=== PATIENT | male | born 1955 | race Caucasian/White ===

== ENCOUNTER 2019-10-18 09:06 | Emergency (ER) | payer MEDICARE ==
[~2019-10-18] VITALS: Ht 177.8 cm; Wt 95.2 kg
[~2019-10-18 09:06] MED LIST: CENTRUM SILVER1 EAC3 PO; FLUTICASONE PRO16 GM NAS; GLYBURIDE5 MG PO; LANTUS SOL100 UNIT/1 SUB-Q; LISINOPRIL40 MG PO; MELOXICAM7.5 MG PO; METFORMIN HCL500 MG PO; METOPROLOL SUC200 MG PO; NIFEDIPINE ER60 MG PO; PRAVASTATIN SOD40 MG PO; RANITIDINE HCL300 M1 PO; TRAMADOL HCL50 MG PO; VITAMIN C1000 MG PO; VITAMIN D31000 UNIT PO; ZYRTEC10 M3 PO
--- OUTSIDE RECORDS SUMMARY | 2019-10-18 09:10 | XMS ---
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 Madan VISIT COUNT (12 MO.) 1 [place]IA [place] TOTAL 1 NOTE: Visits indicate total known visits. ED/UCC VISIT TRACKING (12 MO.) 10/18/2019 09:07 [place] TYPE: Emergency COMPLAINT: - CHEST PAIN, TINGLING IN ARMS INPATIENT VISIT TRACKING (12 MO.) No inpatient visits to display in this time frame [email or web address]
--- NOTE | 2019-10-18 13:22 | EKG ---
[facility] [address] [facility] [place] [address] elevation, consider inferior injury or acute infarct ACUTE [place] / STEMI Consider right ventricular involvement in acute inferior infarct Abnormal ECG No previous ECGs available Confirmed by MIKEY ESTRELLA MD ([id number]) on 10/18/2019 1:22:35 PM Electronically Signed By: MIKEY ESTRELLA MD 10/18/19 1322 PATIENT NAME: MOHAN LOVE Electrocardiogram DATE OF : 51 PHYSICIAN: MIKEY ESTRELLA MD REPORT #: [id number] REPORT IS CONFIDENTIAL AND NOT TO BE RELEASED WITHOUT AUTHORIZATION
== END 2019-10-18 09:40 | disposition short-term general hospital (02) ==
LOC: ED 09:06
DX: I21.3 ST elevation (STEMI) myocardial infarction of unspecified site (principal); I10 Essential (primary) hypertension; E11.9 Type 2 diabetes mellitus without complications; G47.30 Sleep apnea, unspecified; Z88.8 Allergy status to other drugs, medicaments and biological substances; Z79.899 Other long term (current) drug therapy; Z79.84 Long term (current) use of oral hypoglycemic drugs
CPT/HCPCS: 71045; 80053; 83735; 84484; 85025; 93005; 93010; 96374; 99285-25; J1644

== ENCOUNTER 2019-10-27 04:43 | Emergency (ER) | payer MEDICARE ==
[~2019-10-27] VITALS: Ht 177.8 cm; Wt 95.2 kg
--- OUTSIDE RECORDS SUMMARY | 2019-10-27 04:46 | XMS ---
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 ELinda VISIT COUNT (12 MO.) 2 CECELIA [place] TOTAL 2 NOTE: Visits indicate total known visits. 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 TYPE: Transplant DIAGNOSES: - Metabolic syndrome - Hyperglycemia, unspecified - Presence of aortocoronary bypass graft - Paroxysmal atrial fibrillation - multiple vessle coronary artery disease - 1 Type 2 diabetes mellitus with other specified complication - terminal supervisor (current) use of insulin [facility] DIAGNOSES: - STEMI - Athscl heart disease of [place] cor art w unstable ang pctrs - chest pain - STEMI involving right coronary artery [email or web address]
[2019-10-27] MEDS ORDERED: PACERONE200 MG PO (07:31)
[2019-10-27] MEDS ORDERED: TOPROL XL25 MG PO (07:31)
--- NOTE | 2019-10-28 11:05 | EKG ---
[facility] [address] [facility] [place] [address] Signed Atrial fibrillation with rapid ventricular response Nonspecific T wave abnormality Abnormal ECG When compared with ECG of 18-OCT-2019 09:09, Atrial fibrillation has replaced Sinus rhythm ST no longer depressed in Lateral leads Nonspecific T wave abnormality has replaced inverted T waves in Lateral leads Confirmed by MANOJ MCKNIGHT DO ([id number]) on 10/28/2019 11:05:14 AM Electronically Signed By: MANOJ MCKNIGHT DO 10/28/19 1105 PATIENT NAME: MOHAN LOVE Electrocardiogram DATE OF : 51 PHYSICIAN: MANOJ MCKNIGHT DO REPORT #: [id number] REPORT IS CONFIDENTIAL AND NOT TO BE RELEASED WITHOUT AUTHORIZATION
== END 2019-10-27 07:59 | disposition home or self-care (01) ==
LOC: ED 04:43
DX: I48.91 Unspecified atrial fibrillation (principal); I10 Essential (primary) hypertension; E11.9 Type 2 diabetes mellitus without complications; G47.30 Sleep apnea, unspecified; Z87.891 Personal history of nicotine dependence; Z88.8 Allergy status to other drugs, medicaments and biological substances; Z79.899 Other long term (current) drug therapy; Z79.4 Long term (current) use of insulin
CPT/HCPCS: 80053; 84484; 85025; 85610; 99285-25

== ENCOUNTER 2019-10-30 23:31 | Emergency (ER) | payer MEDICARE ==
[~2019-10-30] VITALS: Ht 177.8 cm; Wt 95.2 kg
[~2019-10-30 23:31] MED LIST changes: +PACERONE200 MG PO; +TOPROL XL25 MG PO
--- OUTSIDE RECORDS SUMMARY | 2019-10-30 23:34 | XMS ---
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 ELinda VISIT COUNT (12 MO.) 3 CECELIA [place] TOTAL 3 NOTE: Visits indicate total known visits. 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
== END 2019-10-31 01:07 | disposition home or self-care (01) ==
LOC: ED 23:31
DX: M70.72 Other bursitis of hip, left hip (principal); I10 Essential (primary) hypertension; E11.9 Type 2 diabetes mellitus without complications; G47.30 Sleep apnea, unspecified; Z87.891 Personal history of nicotine dependence; Z88.8 Allergy status to other drugs, medicaments and biological substances; Z79.899 Other long term (current) drug therapy; Z79.84 Long term (current) use of oral hypoglycemic drugs
CPT/HCPCS: 80053; 85025; 85610; 85730; 93971; 99284-25

== ENCOUNTER 2019-12-24 09:04 | Inpatient (IN) | payer MEDICARE ==
[~2019-12-24] VITALS: Ht 177.8 cm; Wt 95.2 kg
[~2019-12-24 09:04] MED LIST changes: -GLYBURIDE5 MG PO; -LISINOPRIL40 MG PO; -METFORMIN HCL500 MG PO; -METOPROLOL SUC200 MG PO; -PRAVASTATIN SOD40 MG PO
--- OUTSIDE RECORDS SUMMARY | 2019-12-24 09:06 | XMS ---
PreManage Notification: MOHAN LOVE Security Manager Generation Events No recent Security Events currently on file CRITERIA MET - [facility] CARE PROVIDERS ROBERT STUBBS Family [facility] Current PHONE: [phone] Robert Stubbs Treatment Current [place] PHONE: Unknown ROBERT STUBBS Primary Care Current PHONE: [phone] Masoud has no Care Guidelines for this patient. Care History Medical/Surgical 10/31/2019 [facility] - [facility] CALLED AND LEFT PATIENT A VOICEMAIL. - [facility] CONTACTED PCP OFFICE-DR STUBBS-PATIENT HAS NOT BEEN SEEN BY PCP SINCE JULY 2019. NO FOLLOW UP APTS HAVE BEEN MADE. - HIGH RISK CONCERNS FOR FOLLOW UP. Madan VISIT COUNT (12 MO.) 4 CECELIA [place] TOTAL 4 NOTE: Visits indicate total known visits. 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 drugs - Allergy status to other drugs, medicaments and biological sub 10/27/2019 04:44 [facility] [place] TYPE: Emergency COMPLAINT: - RAPID HEARTBEAT DIAGNOSES: - Sleep apnea, unspecified - [facility] (current) use of insulin - Type 2 diabetes mellitus without complications - Unspecified atrial fibrillation - Shortness of breath - Other retirement (current) drug therapy - Personal history of nicotine dependence - Essential (primary) hypertension - Allergy status to other drugs, medicaments and biological sub 10/18/2019 09:07 [facility] [place] TYPE: Emergency COMPLAINT: - CHEST PAIN, TINGLING IN ARMS DIAGNOSES: - Other chest pain - Essential (primary) hypertension - Sleep apnea, unspecified - Type 2 diabetes mellitus without complications - Allergy status to other drugs, medicaments and biological sub - Other retirement (current) drug therapy - ocean transportation 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
[2019-12-24] MEDS ORDERED: MELOXICAM15 MG PO (12:19)
[2019-12-24] MEDS ORDERED: ULTRAM50 MG PO (12:20)
[2019-12-24] MEDS ORDERED: ARNUITY ELLIPT50 MCG NAS (12:22)
[2019-12-24] MEDS ORDERED: WARFARIN SODIUM1 MG PO (12:24)
[2019-12-24] MEDS ORDERED: METFORMIN HCL500 MG PO ×2 (12:24→15:53)
[2019-12-24] MEDS ORDERED: ZYRTEC10 MG PO (12:25)
[2019-12-24] MEDS ORDERED: PRAVASTATIN SOD40 MG PO (12:26)
[2019-12-24] MEDS ORDERED: ACETAMINOPHEN500 MG PO (12:27)
[2019-12-24] MEDS ORDERED: ATORVASTATIN CA80 MG PO (12:28)
[2019-12-24] MEDS ORDERED: ASPIR 8181 MG PO (12:28)
[2019-12-24] MEDS ORDERED: CENTRUM SILVER1 EAC3 PO (12:29)
[2019-12-24] MEDS ORDERED: CYCLOBENZAPRINE10 MG PO (12:30)
[2019-12-24] MEDS ORDERED: DILTIAZEM 24HR180 M1 PO (12:30)
[2019-12-24] MEDS ORDERED: METOPROLOL SUC200 MG PO (12:31)
[2019-12-24] MEDS ORDERED: LEVEMIR FL100 UNIT/2 SUB-Q (12:33)
[2019-12-24] MEDS ORDERED: LISINOPRIL40 MG PO (12:33)
[2019-12-24] MEDS ORDERED: VITAMIN C1000 MG PO (12:34)
[2019-12-24] MEDS ORDERED: POTASSIUM CHLO10 ME2 PO (12:34)
[2019-12-24] MEDS ORDERED: VITAMIN D325 MC1 PO (12:35)
[2019-12-24] MEDS ORDERED: CHLORTHALIDONE50 MG PO (12:36)
[2019-12-24] MEDS ORDERED: NIFEDIPINE ER30 MG PO (15:59)
[2019-12-24] MEDS ORDERED: GLYBURIDE5 MG PO (16:00)
[2019-12-24] MEDS ORDERED: METOPROLOL SUC100 MG PO (16:03)
--- NOTE | 2019-12-24 17:09 | EKG ---
[facility] [address] [facility] [place], [place] [address] Signed Sinus tachycardia Possible Left atrial enlargement Inferior infarct , age undetermined T wave abnormality, consider lateral ischemia Abnormal ECG When compared with ECG of 27-OCT-2019 04:49, Significant changes have occurred Confirmed by WILLIAM YBARRA MD ([id number]) on 12/24/2019 5:09:49 PM Electronically Signed By: WILLIAM YBARRA MD 12/24/19 1709 PATIENT NAME: MOHAN LOVE Electrocardiogram DATE OF : 51 PHYSICIAN: WILLIAM YBARRA MD REPORT #: [id number] REPORT IS CONFIDENTIAL AND NOT TO BE RELEASED WITHOUT AUTHORIZATION
[2019-12-24] MEDS ORDERED: FLONASE ALLERG9.9 ML NAS (18:53)
--- NOTE | 2019-12-25 06:23 | CONS ---
[facility] [address] [place], [place] [address] Signed DATE OF CONSULTATION: 12/24/2019 CHIEF COMPLAINT: Melena. HISTORY OF PRESENT ILLNESS: Jcarlos is a 64-year-old gentleman, I have known for quite a few years. Over last couple of days he has had melena, weakness and dyspnea on exertion. He just went up to [facility] in [place] on October 18, 2019 for a CABG x4. He said there are no stents in his heart to his knowledge, apparently he had a STEMI. He has come to the emergency room with the above. He has been on aspirin, meloxicam, and Coumadin. He has been admitted to the Internal Medicine Service. He received 2 units of packed red blood cells. He said he is already feeling better. He has been started on his bowel prep. I have been asked to see him as a general surgeon on-call for consideration of upper and lower endoscopy. He told me he has never had a previous colonoscopy. No family history of colon cancer or polyps to his knowledge. PAST MEDICAL HISTORY: Hypertension, STEMI in September 2019, coronary artery disease, type 2 diabetes, obstructive sleep apnea requiring CPAP, and hypercholesterolemia. PAST SURGICAL HISTORY: Includes a right rotator cuff repair, CABG x4, October 18, 2019 at [facility] in [place], also back surgery without any metal. SOCIAL HISTORY: He quit smoking. He does drink. His brother is Jamie at [phone]. Dr. Robert Stubbs is primary care provider, Dr. Dee is his construction operations manager and he prefers the [facility] here in [place]. He does drive. FAMILY HISTORY: He said his brother has lots of medical problems. His mom had a pacemaker in her 90s. REVIEW OF SYSTEMS: He had 10 systems reviewed. There is nothing new to add. ALLERGIES: Dogs, molds and seasonal allergies. MEDICATIONS: Insulin, lisinopril, potassium, vitamin C, vitamin D, THC, chlorthalidone, meloxicam, aspirin, tramadol, fluconazole, metformin, Coumadin, Zyrtec, pravastatin, Tylenol, multivitamin, Flexeril, metoprolol, glyburide. Electronically Signed By: FRANK GARIBAY MD 12/25/19 0623 PATIENT NAME: JCARLOS LOVE CONSULTATION DATE OF : 51 REPORT #: [id number] PHYSICIAN: FRANK GARIBAY MD PCP: ROBERT STUBBS MD REPORT IS CONFIDENTIAL AND NOT TO BE RELEASED WITHOUT AUTHORIZATION [facility] [address] [place], [place] [address] Signed PHYSICAL EXAMINATION: VITAL SIGNS: Blood pressure is 150/85, heart rate 105, respiratory rate 18, temperature is 98.3, he is 97%. He is 5 feet 10 inches at 95 kg. GENERAL: Jcarlos is a 64-year-old gentleman, appears healthy and at his stated age. He is watching TV. He has good color. He is not in any acute distress. LUNGS: Generally clear to auscultation bilaterally. HEART: Tachycardic. ABDOMEN: Soft, flat, and nontender. LABORATORY DATA: His white blood cell count 18.6, hemoglobin 7.4, neutrophils 92, platelets 270. BUN 91, creatinine 1.72, glucose 225, his troponin was 0.033. INR 1.8. Liver function tests are negative. Albumin is 3.6. ASSESSMENT AND PLAN: Jcarlos is a 64-year-old gentleman who presents with a GI bleed involving melena and anemia. I explained to Jcarlos the above findings. He is currently undergoing his bowel prep. We are going to plan on doing his endoscopy around 9 o'clock tomorrow morning with an anesthesia provider to help. I have reviewed with him upper and lower endoscopy. He understands the nature of the two tests along with the risks including, but not limited to gas bloating, crampy abdominal pain, bleeding, perforation requiring surgery, and missed diagnosis. He has expressed understanding and would like to proceed. Frank Garibay MD ALB/MODL /[id number] cc: MD Robert Patten MD Lohith Veerappa Reddy, MD Copies: CARI DEE MD Electronically Signed By: FRANK GARIBAY MD 12/25/19 0623 PATIENT NAME: JCARLOS LOVE CONSULTATION DATE OF : 51 REPORT #: [id number] PHYSICIAN: FRANK GARIBAY MD PCP: ROBERT STUBBS MD REPORT IS CONFIDENTIAL AND NOT TO BE RELEASED WITHOUT AUTHORIZATION [address] [address] Signed ROBERT STUBBS MD, LOHITH VEERAPPA MD ~ Electronically Signed By: FRANK GARIBAY MD 12/25/19 0623 PATIENT NAME: CÉSARTEREJCARLOS GERARDO CONSULTATION DATE OF : 51 REPORT #: [id number] PHYSICIAN: FRANK GARIBAY MD PCP: ROBERT STUBBS MD REPORT IS CONFIDENTIAL AND NOT TO BE RELEASED WITHOUT AUTHORIZATION
--- NOTE | 2019-12-26 05:58 | OR ---
[facility] [address] [place], [place] [address] Signed DATE OF OPERATION: 12/25/2019 SURGEON: Frank Garibay MD PREOPERATIVE DIAGNOSES: 1. Gastrointestinal bleeding (melena). 2. Anemia. 3. Daily aspirin, meloxicam, and Coumadin. POSTOPERATIVE DIAGNOSES: 1. Clxpkpkb-my-ermau pyloric bulb duodenal ulcer. 2. Small hiatal hernia. 3. A 5 mm polyp in the distal hepatic flexure. 4. Minimal to moderate internal hemorrhoids. PROCEDURES: 1. EGD with CLOtest and biopsies of the pyloric bulb. 2. Colonoscopy with hot biopsy. ESTIMATED BLOOD LOSS: None. INDICATIONS: Jcarlos is a 64-year-old gentleman who was having some chest pain and numbness in his fingers in September of this year. He had his cardiac cath in [place], [place] and was flown up to [place], [place] and underwent his CABG x4 on October 18, 2019. He is now back home in [place], [place]. He is on daily aspirin and Coumadin along with meloxicam for his back. He was having at least 2 days of melena and dyspnea on exertion and feeling weak. He finally came to the emergency room for evaluation. He was found to be anemic with a hemoglobin of 7.4 and his BUN was up at 91 with a creatinine of 1.72. Troponin was a little up at 0.033. INR was therapeutic at 1.8. He was admitted to the Internal Medicine Service and given vitamin K in the emergency room. I have been asked to see him as a general surgeon on-call. In the meantime, he received 2 units of packed red blood cells. His hemoglobin went up to 8.6 and is now 8.0. His platelet count has dropped from 270 down to 188. His BUN and creatinine have improved from down to 64 and 1.38. INR also improved to 1.1. He went through his bowel prep yesterday and seemed to do fine. He said just a little bit of brown stool was the last thing he saw around 11:00 p.m. last night. I met with Jcarlos here in the hospital. We had a long discussion regarding the above findings. We reviewed upper and lower endoscopy. Unfortunately, he has never had an endoscopy. He said for other various medical Electronically Signed By: FRANK GARIBAY MD 12/26/19 0558 PATIENT NAME: JCARLOS LOVE OPERATIVE REPORT DATE OF : 51 REPORT #: [id number] PHYSICIAN: FRANK GARIBAY MD PCP: ROBERT KRAUS MD REPORT IS CONFIDENTIAL AND NOT TO BE RELEASED WITHOUT AUTHORIZATION [facility] [address] [place] [address] Signed reasons, he has had to put it off. I explained to him there is risk to the procedure including, but not limited to gas bloating, crampy abdominal pain, bleeding, perforation requiring surgery, and missed diagnosis. Also because of his significant medical comorbidities including his rather significant obstructive sleep apnea requiring CPAP mask, we did ask an anesthesia provider to help us with increased monitoring and sedation with propofol. That proved to be a mccann decision particularly with respect to his sleep apnea. He had expressed understanding and wished to proceed. PROCEDURE NOTE: Jcarlos was taken into our endoscopy suite and placed in the supine semi-recumbent position. He was given IV sedation per our nurse cotton machine operator. He required frequent airway control because of the sleep apnea. The adult gastroscope was introduced and advanced out into the third portion of the duodenum under direct visualization of the camera without difficulty. The 2nd and 3rd portion of the duodenum were unremarkable. The pyloric bulb was edematous and had sbcdtetv-rc-lkqih broad-based nonbleeding ulcer. We took a biopsy next to it for pathologic review on the distal side. The antrum, incisura, body and fundus of the stomach were unremarkable. We took one additional biopsy of the antrum for CLOtest. Upon retroflexion of the scope, he does have a small hiatal hernia. There was no gastric or esophageal varices. The scope was withdrawn up to the GE junction, which was compliant without stricture. The Z-line is generally intact. No Cerrato's mucosa, no distal esophagitis. The middle and upper esophagus were unremarkable. After this, the gas was suctioned out and the gastroscope removed. Jcarlos tolerated upper endoscopy quite well. Jcarlos was then rotated into the left lateral decubitus position. He was maintained on IV sedation per our nurse cotton machine operator. A digital rectal exam was performed. He has a somewhat broad enlarged indurated prostate gland. The adult colonoscope was then introduced and advanced under direct visualization of the camera. We did use some abdominal compression in order to get the scope around the hepatic flexure and down into the cecum itself. His prep was average. He had a few areas of liquid particulate stool matter. Most of that was irrigated and suctioned out. We could easily see the appendiceal orifice and the ileocecal valve. The scope was slowly withdrawn. He had a small 5 mm polyp in the distal hepatic flexure. It was easily removed with hot biopsy forceps. The rest of the colon was unremarkable. However, he has a somewhat long redundant colon. No diverticulosis. The rectum was unremarkable. Upon retroflexion of the scope, he has minimal-to- moderate internal hemorrhoid columns. After this, the gas was suctioned out and colonoscope removed. Jcarlos tolerated the procedure quite well. RECOMMENDATIONS: Jcarlos will be returned to his ICU room and started on his clear liquid diet. He will be maintained on his Protonix b.i.d. Electronically Signed By: FRANK GARIBAY MD 12/26/19 0558 PATIENT NAME: JCARLOS LOVE OPERATIVE REPORT DATE OF : 51 REPORT #: [id number] PHYSICIAN: FRANK GARIBAY MD PCP: ROBERT KRAUS MD REPORT IS CONFIDENTIAL AND NOT TO BE RELEASED WITHOUT AUTHORIZATION [address] [address] Signed Frank Garibay MD ALB/MODL /[id number] cc: MD Robert Sigala MD Suwong Wongsuwan, MD Copies: FRANK GARIBAY MD, JONATHAN MD WONGSUWAN, SUWONG MD ~ Electronically Signed By: FRANK GARIBAY MD 12/26/19 0558 PATIENT NAME: JCARLOS LOVE OPERATIVE REPORT DATE OF : 51 REPORT #: [id number] PHYSICIAN: FRANK GARIBAY MD PCP: ROBERT KRAUS MD REPORT IS CONFIDENTIAL AND NOT TO BE RELEASED WITHOUT AUTHORIZATION
[2019-12-26] MEDS ORDERED: METOPROLOL TAR100 MG PO (10:17)
[2019-12-26] MEDS ORDERED: DILTIAZEM 24HR240 M1 PO (10:17)
[2019-12-26] MEDS ORDERED: PANTOPRAZOLE SO40 MG PO (10:18)
[2019-12-26] MEDS ORDERED: ELIQUIS5 MG PO (10:20)
--- NOTE | 2019-12-26 14:32 | PATH ---
[facility] [address] [place], [place] [address] Signed SPECIMEN(S): A DUODENUM BULB SPECIMEN(S): B DISTAL HEPATIC FLEXURE POLYP SPECIMEN SOURCE: A. DUODENUM BULB B. DISTAL HEPATIC FLEXURE POLYP CLINICAL HISTORY: GI bleed. MICROSCOPIC DESCRIPTION: Histologic sections of all submitted blocks are examined by light microscopy. These findings, together with the gross examination, support the pathologic diagnosis. FINAL PATHOLOGIC DIAGNOSIS: A. Duodenal bulb, biopsy: - Duodenal mucosa with mild increased lamina propria chronic inflammation. - Negative for dysplasia or malignancy. B. Colon, distal hepatic flexure, polyp, polypectomy: - Fragments of tubular adenoma. - Negative for high-grade dysplasia or malignancy. NAL:cml:C2NR GROSS DESCRIPTION: Two specimens are received in two containers, labeled "DM." A. The specimen, labeled "DM, 1," and designated on the requisition "duodenal bulb," is received in formalin and consists of a single rocha soft tissue fragment that measures 0.4 cm in greatest dimension. The specimen is entirely submitted in cassette (A1). B. The specimen, labeled "DM, 2," and designated on the requisition "distal hepatic flexure," is received in formalin and consists of three rocha soft tissue fragments that measure 0.3 cm in greatest dimension. The specimen is entirely submitted in cassette (B1). AT (under the direct supervision of a pathologist) The Gross Description was prepared using a voice recognition system. The report was reviewed for accuracy; however, sound-alike word errors, addition and/or deletions may occur. If there is any question about this report, please contact Client Services. PERFORMING LABORATORY: The technical component was performed by Beneq, Myriam Rodriguezfred Viraj, PATIENT NAME: MOHAN LOVE PATHOLOGY DATE OF : 51 REPORT #: [id number] PHYSICIAN: [facility] PATHOLOGY PCP: ROBERT KRAUS MD REPORT IS CONFIDENTIAL AND NOT TO BE RELEASED WITHOUT AUTHORIZATION [facility] [address] [place], [place] [address] [place] [address] (Director Labor Standards: Radha Mercado MD; CLIA# [id number]). Professional interpretation was performed by [facility], [address] [address] (CLIA# [id number]). Diagnostician: Rachel Zavaleta MD Pathologist Electronically Signed 12/26/2019 Copies: ~ PATIENT NAME: MOHAN LOVE PATHOLOGY DATE OF : 51 REPORT #: [id number] PHYSICIAN: MAR[facility] PATHOLOGY PCP: ROBERT KRAUS MD REPORT IS CONFIDENTIAL AND NOT TO BE RELEASED WITHOUT AUTHORIZATION
== END 2019-12-26 11:20 | disposition home or self-care (01) | DRG 378 ==
LOC: ED 09:04 → CCU 12:18
PROVIDERS: Colon & Rectal Surgery; ADMIT Internal Medicine
PROC: 0DBL8ZX Excision of Transverse Colon, Via Natural or Artificial Opening Endoscopic, Diagnostic (ICD-10-PCS; 2019-12-25)
PROC: 0DB98ZX Excision of Duodenum, Via Natural or Artificial Opening Endoscopic, Diagnostic (ICD-10-PCS; principal; 2019-12-25 08:00)
PROC: 0DB78ZX Excision of Stomach, Pylorus, Via Natural or Artificial Opening Endoscopic, Diagnostic (ICD-10-PCS; 2019-12-25 08:00)
DX: K26.4 Chronic or unspecified duodenal ulcer with hemorrhage (principal); D62 Acute posthemorrhagic anemia; N17.9 Acute kidney failure, unspecified; I48.92 Unspecified atrial flutter; K44.9 Diaphragmatic hernia without obstruction or gangrene; I10 Essential (primary) hypertension; E11.22 Type 2 diabetes mellitus with diabetic chronic kidney disease; N18.9 Chronic kidney disease, unspecified; I25.10 Atherosclerotic heart disease of native coronary artery without angina pectoris; I48.0 Paroxysmal atrial fibrillation; G47.33 Obstructive sleep apnea (adult) (pediatric); T39.395A Adverse effect of other nonsteroidal anti-inflammatory drugs [NSAID], initial encounter; E78.5 Hyperlipidemia, unspecified; M54.9 Dorsalgia, unspecified; G89.29 Other chronic pain; K64.8 Other hemorrhoids; J30.2 Other seasonal allergic rhinitis; K63.5 Polyp of colon; Z87.891 Personal history of nicotine dependence; Z95.1 Presence of aortocoronary bypass graft; Z79.899 Other long term (current) drug therapy; Z79.01 Long term (current) use of anticoagulants; Z79.1 Long term (current) use of non-steroidal anti-inflammatories (NSAID); Z79.4 Long term (current) use of insulin
CPT/HCPCS: 36415; 36430; 80048; 80053; 83735; 84484; 85018; 85025; 85610; 86677; 86850; 86900; 86901; 86920; 93005; 93010; 99285-25; C9113; J1815; J2704; J3430; J7121; P9016

== ENCOUNTER 2020-01-29 18:55 | Emergency (ER) | payer MEDICARE ==
[~2020-01-29] VITALS: Ht 177.8 cm; Wt 93.0 kg
[~2020-01-29 18:55] MED LIST changes: +ACETAMINOPHEN500 MG PO; +ARNUITY ELLIPT50 MCG NAS; +ASPIR 8181 MG PO; +ATORVASTATIN CA80 MG PO; +CHLORTHALIDONE25 MG PO; +CHLORTHALIDONE50 MG PO; +CYCLOBENZAPRINE10 MG PO; +DILTIAZEM 24HR180 M1 PO; +DILTIAZEM 24HR240 M1 PO; +ELIQUIS5 MG PO; +FLONASE ALLERG9.9 ML NAS; +GLYBURIDE5 MG PO; +LEVEMIR FL100 UNIT/2 SUB-Q; +LISINOPRIL40 MG PO; +MELOXICAM15 MG PO; +METFORMIN HCL500 MG PO; +METOPROLOL SUC100 MG PO; +METOPROLOL SUC200 MG PO; +METOPROLOL TAR100 MG PO; +NIFEDIPINE ER30 MG PO; +PANTOPRAZOLE SO40 MG PO; +POTASSIUM CHLO10 ME2 PO; +PRAVASTATIN SOD40 MG PO; +ULTRAM50 MG PO; +VITAMIN D325 MC1 PO; +WARFARIN SODIUM1 MG PO; +ZYRTEC10 MG PO
--- OUTSIDE RECORDS SUMMARY | 2020-01-29 18:58 | XMS ---
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 - 2 Visits in 30 Days CARE PROVIDERS ROBERT KRAUS Family Medicine 12/24/2019-Current PHONE: [phone] Masoud has no Care Guidelines for this patient. Care History Medical/Surgical 10/31/2019 [facility] - [facility] CALLED AND LEFT PATIENT A VOICEMAIL. - [facility] CONTACTED PCP OFFICE-DR KRAUS-PATIENT HAS NOT BEEN SEEN BY PCP SINCE JULY 2019. NO FOLLOW UP APTS HAVE BEEN MADE. - HIGH RISK CONCERNS FOR FOLLOW UP. [place] VISIT COUNT (12 MO.) 6 [facility] TOTAL 6 NOTE: Visits indicate total known visits. ED/UCC VISIT TRACKING (12 MO.) 01/29/2020 18:56 [facility] [place] TYPE: Emergency COMPLAINT: - HEART PROBLEMS 12/30/2019 21:01 [facility] TYPE: Emergency COMPLAINT: - LOW BLOOD PRESSURE 12/24/2019 09:04 [facility] [place] TYPE: Emergency COMPLAINT: - WEAKNESS 10/30/2019 23:31 [facility] [place] [facility] [place] TYPE: Emergency COMPLAINT: - HIP PAIN DIAGNOSES: - Old myocardial infarction - Other bursitis of hip, left hip - Presence of aortocoronary bypass graft - Acute embolism and thrombosis of left peroneal vein - Personal history of nicotine dependence - Type 2 diabetes mellitus without complications - Sleep apnea, unspecified - Essential (primary) hypertension - Other rn long term care (current) drug therapy - skilled nursing (current) use of oral hypoglycemic drugs - Allergy status to other drugs, medicaments and biological sub 10/27/2019 04:44 [facility] [place] TYPE: Emergency COMPLAINT: - RAPID HEARTBEAT DIAGNOSES: - Sleep apnea, unspecified - intermediate project manager (current) use of insulin - Type 2 diabetes mellitus without complications - Unspecified atrial fibrillation - Shortness of breath - Other rn long term care (current) drug therapy - Personal history of [...] drugs, medicaments and biological sub - Other detention (current) drug therapy - skilled nursing (current) use of oral hypoglycemic drugs - ST elevation (STEMI) myocardial infarction of unspecified sit INPATIENT VISIT TRACKING (12 MO.) 12/30/2019 21:02 [facility] TYPE: Observation COMPLAINT: - ACUTE BLOOD LOSS/ANEMIA DIAGNOSES: - intermediate project manager (current) use of anticoagulants - Chronic atrial fibrillation, unspecified - Personal history of nicotine dependence - Other rn long term care (current) drug therapy - Sleep apnea, unspecified - Pure hypercholesterolemia, unspecified - Essential (primary) hypertension - skilled nursing (current) use of inhaled steroids - Type 2 diabetes mellitus without complications - Old myocardial infarction - skilled nursing (current) use of insulin - Chronic or unspecified duodenal ulcer with hemorrhage - Dependence on other enabling machines and devices - Presence of aortocoronary bypass graft - Acute kidney failure, unspecified - Acute posthemorrhagic anemia 12/24/2019 12:18 [facility] TYPE: Critical Care COMPLAINT: - GI BLEED DIAGNOSES: - Polyp of colon - Other chronic pain - Other seasonal allergic rhinitis - skilled nursing (current) use of anticoagulants - Personal history of nicotine dependence - Other hemorrhoids - Dorsalgia, unspecified - Acute posthemorrhagic anemia - Chronic kidney disease, unspecified - Diaphragmatic hernia without obstruction or gangrene - Essential (primary) hypertension - Other rn long term care (current) drug therapy - Acute posthemorrhagic anemia - Adverse effect of other nonsteroidal anti-inflammatory drugs - Other seasonal allergic rhinitis - Other rn long term care (current) drug therapy - Unspecified atrial flutter - intermediate project manager (current) use of insulin - skilled nursing (current) use of anticoagulants - Atherosclerotic heart disease of [place] coronary artery witho - Hyperlipidemia, unspecified - Presence of aortocoronary bypass graft - Dorsalgia, unspecified - Melena - Paroxysmal atrial fibrillation - Type 2 diabetes mellitus with diabetic chronic kidney disease - intermediate project manager (current) use of non-steroidal anti-inflammatories - Unspecified atrial flutter - Other hemorrhoids - Polyp of colon - Chronic or unspecified duodenal ulcer with hemorrhage - Obstructive sleep apnea (adult) (pediatric) - Type 2 diabetes mellitus with diabetic chronic kidney disease - Diaphragmatic hernia without obstruction or gangrene - skilled nursing (current) use of non-steroidal anti-inflammatories - Presence of aortocoronary bypass graft - Chronic kidney disease, unspecified - Hyperlipidemia, unspecified - Paroxysmal atrial fibrillation - Acute kidney failure, unspecified - Personal history of nicotine dependence - Adverse effect of other nonsteroidal anti-inflammatory drugs - Other chronic pain - Essential (primary) hypertension - skilled nursing (current) use of insulin - Obstructive sleep apnea (adult) (pediatric) - Acute kidney failure, unspecified - Atherosclerotic heart disease of [place] coronary artery witho - Chronic or unspecified duodenal ulcer with hemorrhage 10/18/2019 17:[address] [facility] TYPE: Transplant DIAGNOSES: - Metabolic syndrome - Hyperglycemia, unspecified - Presence of aortocoronary bypass graft - Paroxysmal atrial fibrillation - multiple vessle coronary artery disease - Type 2 diabetes mellitus with other specified complication - skilled nursing (current) use of insulin 10/18/2019 10:[address] [facility] TYPE: Intensive Care DIAGNOSES: - STEMI - Atherosclerotic heart disease of [place] coronary artery with - chest pain - ST elevation (STEMI) myocardial infarction involving right co [email or web address]
== END 2020-01-29 19:30 | disposition left against medical advice (07) ==
LOC: ED 18:55
DX: Z53.21 Procedure and treatment not carried out due to patient leaving prior to being seen by health care provider (principal)

== ENCOUNTER 2023-05-12 06:54 | Day surgery (SDC) | payer MEDICARE ==
[2023-05-10 15:14] VITALS: BP 152/80
[~2023-05-12] VITALS: Ht 177.8 cm; Wt 90.9 kg
--- NOTE | ~2023-05-12 | OR ---
[facility] [address], [place] [address] Draft DATE OF OPERATION: 05/12/2023 SURGEON: Eliza Joiner MD PREOPERATIVE DIAGNOSES: Nasal obstruction, obstructive sleep apnea, dependency on CPAP machine, rhinitis medicamentosa, and hypertrophy of the inferior turbinates. POSTOPERATIVE DIAGNOSES: Nasal obstruction, obstructive sleep apnea, dependency on CPAP machine, rhinitis medicamentosa, and hypertrophy of the inferior turbinates. PROCEDURE: Submucous resection of inferior turbinates bilaterally, [id number]. INDICATIONS: This 68-year-old white male on a CPAP machine can get adequate oxygenation, is always relied on Afrin for years, which has made the problem worse. On examination, the patient had a nose full turbinates and septum relatively straight. The plan was to reduce these things drastically, so the patient could breathe and then have him never use Afrin again. DESCRIPTION OF PROCEDURE: The patient was placed in the supine position and had induction of general anesthesia by IV and using laryngeal mask. The nostril hairs were trimmed, so we had good vision of either side. The right inferior turbinate was larger than the left, so it was worked on even despite the Afrin actually make the mucosa pull away from the septum. Some of this was bony in origin as it was quite medial. Stab incision was made with a #15 blade after injecting with 2 mL of 1% lidocaine with 1:100,000 epinephrine. Careful dissection done on the medial and the lateral limits of the turbinate bone, isolating it and then removing it with Gudelia forceps going back as far as we could using the pediatric Gudelia, then using the curette to fracture the turbinate bone into little pieces. 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 A piece of Telfa was placed folded up to help keep the space required in the nose and then I will remove that in the recovery room. The same procedure done on the left side without any variation. A 2 mL more of lidocaine, stab incision anteriorly. There were a couple of pieces of very redundant tissue removed with the endoscopic sinus instruments and then the patient had more Telfa placed on that side and that terminated the procedure. The patient was taken to the PATIENT NAME: MOHAN LOVE OPERATIVE REPORT DATE OF : 51 REPORT #: [id number] PHYSICIAN: ELIZA JOINER MD PCP: MARTÍN VERA MD REPORT IS CONFIDENTIAL AND NOT TO BE RELEASED WITHOUT AUTHORIZATION [facility] [address], [place] [address] Draft recovery room in good condition. ESTIMATED BLOOD LOSS: Less than 5 mL. Eliza Joiner MD [facility]/MODL /[id number] Copies: ~ PATIENT NAME: MOHAN LOVE OPERATIVE REPORT DATE OF : 51 REPORT #: [id number] PHYSICIAN: ELIZA JOINER MD PCP: MARTÍN VERA MD REPORT IS CONFIDENTIAL AND NOT TO BE RELEASED WITHOUT AUTHORIZATION
[~2023-05-12 06:54] MED LIST changes: +COQ-10100 MG PO; +COREG25 MG PO; +COZAAR25 MG PO; +CRESTOR20 MG PO; +FLOMAX0.4 MG PO; +HYDROCHLOROTH12.5 M1 PO; +INSPRA25 MG PO; -LEVEMIR FL100 UNIT/2 SUB-Q; +LEVEMIR100 UNIT/1 SUB-Q; +NORVASC5 MG PO; +OXYBUTYNIN CHLO10 MG PO; +OZEMPIC1 MG/0.71 SQ; +PROSCAR5 MG PO; +TURMERIC500 M3 PO; +TYLOPHEN500 MG PO
[2023-05-12 07:18] VITALS: BP 164/70
[2023-05-12 11:14] VITALS: BP 147/64
[2023-05-12 12:11] VITALS: BP 154/68
== END 2023-05-12 12:30 | disposition home or self-care (01) ==
LOC: OPS 06:54 → DS 06:54 → OPS 09:15
PROVIDERS: ATTEND Otolaryngology
PROC: 09BL0ZZ Excision of Nasal Turbinate, Open Approach (ICD-10-PCS; principal; 2023-05-12 09:15)
DX: J34.3 Hypertrophy of nasal turbinates (principal); J34.89 Other specified disorders of nose and nasal sinuses; J31.0 Chronic rhinitis; G47.33 Obstructive sleep apnea (adult) (pediatric); I10 Essential (primary) hypertension; E11.9 Type 2 diabetes mellitus without complications; I25.10 Atherosclerotic heart disease of native coronary artery without angina pectoris
CPT/HCPCS: A9270; J1100; J2001; J2405; J2704; J3490; J7121

== ENCOUNTER 2023-05-17 12:56 | Emergency (ER) | payer MEDICARE ==
[~2023-05-17] VITALS: Ht 177.8 cm; Wt 93.4 kg
--- OUTSIDE RECORDS SUMMARY | ~2023-05-17 | XMS | Continuity of Care Document ---
Demographics + + + | Address | [address] | | | [place] [address] | + + + | Preferred Language | Unknown | + + + | Marital Status | | + + + | Confucianist Affiliation | Unknown | + + + | Race | White | + + + | Ethnic Group | Not or | + + + Author + + + | Author | [facility] | + + + | Organization | [facility] | + + + | Address | [address] | | | [place] [address] | + + + | Phone | | + + + Care Team Providers + + + + | Care Engineering Leader Name | Role | Phone | + + + + Unavailable | Unavailable | + + + + Unavailable | Unavailable | + + + + Unavailable | Unavailable | + + + + Allergies and Intolerances + + + + + + | date | description | facility | reaction | severity | + + + + + + | (no date) | mold extracts | [facility] | (no reaction) | (no severity) | + + + + + + | (no date) | dogs | [facility] | (no reaction) | (no severity) | + + + + + + Encounters No information. Functional Status No information. Immunizations No information. Medications + + + + | date | description | facility | + + + + | 2022-04-03 00:00 | CETIRIZINE HCL | [facility] | + + + + | 2022-11-02 00:00 | CETIRIZINE HCL | [facility] | + + + + | 2023-05-12 00:00 | CETIRIZINE HCL | [facility] | + + + + | 2019-12-26 00:00 | APIXABAN | [facility] | + + + + | 2023-05-12 00:00 | APIXABAN | [facility] | + + + + | 2022-04-03 00:00 | MELOXICAM | [facility] | + + + + | 2022-11-02 00:00 | MELOXICAM | [facility] | + + + + | 2023-05-12 00:00 | MELOXICAM | [facility] | + + + + | 2022-04-03 00:00 | FLUTICASONE PROPIONATE | [facility] | + + + + | 2022-11-02 00:00 | FLUTICASONE PROPIONATE | [facility] | + + + + | 2022-04-03 00:00 | CHLORTHALIDONE | [facility] | + + + + | 2022-11-02 00:00 | CHLORTHALIDONE | [facility] | + + + + | 2022-04-03 00:00 | CHLORTHALIDONE | [facility] | + + + + | 2022-11-02 00:00 | CHLORTHALIDONE | [facility] | + + + + | 2023-05-12 00:00 | CHLORTHALIDONE | [facility] | + + + + | 2022-04-03 00:00 | LISINOPRIL | [facility] | + + + + | 2022-11-02 00:00 | LISINOPRIL | [facility] | + + + + | 2022-04-03 00:00 | NIFEDIPINE | [facility] | + + + + | 2022-11-02 00:00 | NIFEDIPINE | [facility] | + + + + | 2023-05-12 00:00 | NIFEDIPINE | [facility] | + + + + | 2022-04-03 00:00 | ASCORBIC ACID | [facility] | + + + + | 2022-11-02 00:00 | ASCORBIC ACID | [facility] | + + + + | 2023-05-12 00:00 | ASCORBIC ACID | [facility] | + + + + | 2022-04-03 00:00 | Cholecalciferol (Vitamin | [facility] | | | D3) | | + + + + | 2022-11-02 00:00 | Cholecalciferol (Vitamin | [facility] | | | D3) | | + + + + | 2023-05-12 00:00 | Cholecalciferol (Vitamin | [facility] | | | D3) | | + + + + | 2023-05-12 00:00 | HYDROCHLOROTHIAZIDE | [facility] | + + + + | 2023-05-12 00:00 | FINASTERIDE | [facility] | + + + + | 2023-05-12 00:00 | CARVEDILOL | [facility] | + + + + | 2023-05-12 00:00 | AMLODIPINE BESYLATE | [facility] | + + + + | 2023-05-12 00:00 | Semaglutide | [facility] | + + + + | 2023-05-12 00:00 | UBIDECARENONE | [facility] | + + + + | 2022-04-03 00:00 | ATORVASTATIN CALCIUM | [facility] | + + + + | 2022-11-02 00:00 | ATORVASTATIN CALCIUM | [facility] | + + + + | 2022-04-03 00:00 | ASPIRIN | [facility] | + + + + | 2022-11-02 00:00 | ASPIRIN | [facility] | + + + + | 2023-05-12 00:00 | ASPIRIN | [facility] | + + + + | 2022-04-03 00:00 | glyBURIDE | [facility] | + + + + | 2022-11-02 00:00 | glyBURIDE | [facility] | + + + + | 2019-12-26 00:00 | PANTOPRAZOLE SODIUM | [facility] | + + + + | 2023-05-12 00:00 | EPLERENONE | [facility] | + + + + | 2023-05-12 00:00 | INSULIN DETEMIR | [facility] | + + + + | 2019-12-26 00:00 | DILTIAZEM HCL | [facility] | + + + + | 2020-01-01 00:00 | DILTIAZEM HCL | [facility] | + + + + | 2022-04-03 00:00 | INSULIN DETEMIR | [facility] | + + + + | 2022-11-02 00:00 | INSULIN DETEMIR | [facility] | + + + + | 2022-04-03 00:00 | WARFARIN SODIUM | [facility] | + + + + | 2022-11-02 00:00 | WARFARIN SODIUM | [facility] | + + + + | 2023-05-12 00:00 | WARFARIN SODIUM | [facility] | + + + + | 2023-05-12 00:00 | ROSUVASTATIN CALCIUM | [facility] | + + + + | 2022-04-03 00:00 | METFORMIN HCL | [facility] | + + + + | 2022-11-02 00:00 | METFORMIN HCL | [facility] | + + + + | 2023-05-12 00:00 | METFORMIN HCL | [facility] | + + + + | 2023-05-12 00:00 | OXYBUTYNIN CHLORIDE | [facility] | + + + + | 2023-05-12 00:00 | TAMSULOSIN HCL | [facility] | + + + + | 2022-04-03 00:00 | METOPROLOL SUCCINATE | [facility] | + + + + | 2022-11-02 00:00 | METOPROLOL SUCCINATE | [facility] | + + + + | 2023-05-12 00:00 | METOPROLOL SUCCINATE | [facility] | + + + + | 2019-12-26 00:00 | METOPROLOL TARTRATE | [facility] | + + + + | 2023-05-12 00:00 | LOSARTAN POTASSIUM | [facility] | + + + + Problems + + + + | date | description | facility | + + + + | 2015-03-30 00:00 | Contusion of finger of | [facility] | | | left hand | | + + + + | 2019-10-18 00:00 | ST elevation myocardial | [facility] | | | infarction (STEMI) | | + + + + | 2019-10-27 00:00 | Atrial fibrillation | [facility] | + + + + | 2019-10-31 00:00 | Bursitis of left hip | [facility] | + + + + | 2019-12-24 00:00 | Gastrointestinal | [facility] | | | hemorrhage | | + + + + | 2019-12-31 00:00 | Severe anemia | [facility] | + + + + | 2020-01-29 00:00 | Patient left without being | [facility] | | | seen | | + + + + | 2022-09-14 00:00 | SPINAL STENOSIS, LUMBAR | [facility] | | | REGION WITHOUT NEUROGENIC | | + + + + | 2022-09-14 00:00 | RADICULOPATHY, LUMBAR | [facility] | | | REGION | | + + + + | 2022-09-14 00:00 | ILIOTIBIAL BAND SYNDROME, | [facility] | | | UNSPECIFIED LEG | | + + + + | 2022-09-14 00:00 | ARTHRODESIS STATUS | [facility] | + + + + | 2022-09-29 09:23 | SPINAL STENOSIS, LUMBAR | [facility] | | | REGION WITHOUT NEUROGENIC | | + + + + | 2022-09-29 09:23 | RADICULOPATHY, LUMBAR | [facility] | | | REGION | | + + + + | 2022-09-29 09:23 | ILIOTIBIAL BAND SYNDROME, | [facility] | | | UNSPECIFIED LEG | | + + + + | 2022-09-29 09:23 | ARTHRODESIS STATUS | [facility] | + + + + | 2022-10-27 07:58 | SPINAL STENOSIS, LUMBAR | [facility] | | | REGION WITHOUT NEUROGENIC | | + + + + | 2022-10-27 07:58 | RADICULOPATHY, LUMBAR | [facility] | | | REGION | | + + + + | 2022-10-27 07:58 | ILIOTIBIAL BAND SYNDROME, | [facility] | | | UNSPECIFIED LEG | | + + + + | 2022-10-27 07:58 | ENCOUNTER FOR OTHER | [facility] | | | [facility]THOP[facility] AFTERCARE | | + + + + | 2022-10-27 07:58 | ARTHRODESIS STATUS | [facility] | + + + + | 2022-11-09 09:21 | CALCULUS OF KIDNEY | [facility] | + + + + | 2022-11-15 08:52 | FUSION OF SPINE, LUMBAR | [facility] | | | REGION | | + + + + | 2022-11-15 08:52 | CALCULUS OF KIDNEY | [facility] | + + + + | 2022-11-15 08:52 | ATROPHY OF KIDNEY | [facility] | | | (TERMINAL) | | + + + + | 2022-11-15 08:52 | CYST OF KIDNEY, ACQUIRED | [facility] | + + + + | 2023-05-10 14:51 | OBSTRUCTIVE SLEEP APNEA | [facility] | | | (ADULT) (PEDIATRIC) | | + + + + | 2023-05-10 14:51 | HYPERTROPHY OF NASAL | [facility] | | | TURBINATES | | + + + + | 2023-05-12 06:54 | TYPE 2 DIABETES MELLITUS | [facility] | | | WITHOUT COMPLICATIONS | | + + + + | 2023-05-12 06:54 | OBSTRUCTIVE SLEEP APNEA | [facility] | | | (ADULT) (PEDIATRIC) | | + + + + | 2023-05-12 06:54 | Essential (primary) | [facility] | | | hypertension | | + + + + | 2023-05-12 06:54 | ATHSCL HEART DISEASE OF | [facility] | | | UPPER [place] CORONARY ARTERY W/O | | + + + + | 2023-05-12 06:54 | CHRONIC RHINITIS | [facility] | + + + + | 2023-05-12 06:54 | HYPERTROPHY OF NASAL | [facility] | | | TURBINATES | | + + + + | 2023-05-12 06:54 | OTHER SPECIFIED DISORDERS | [facility] | | | OF NOSE AND NASAL SINUSE | | + + + + | 2023-05-12 06:54 | OTHER SPECIFIED DISORDERS | [facility] | | | OF NOSE AND NASAL SINUSES | | + + + + | 2023-05-12 09:15 | CHRONIC RHINITIS | [facility] | + + + + | 2023-05-12 09:15 | HYPERTROPHY OF NASAL | [facility] | | | TURBINATES | | + + + + Procedures No information. Results/Labs +--------+--------+ +---------+--------+---------+ | test | date | facility | value | unit | notes | +--------+--------+ +---------+--------+---------+ + + | Result panel 1 | + + + + + +-------+ + + | | 2023-05-10 | [facility] | 154 | (missing) | (missing) | | (unavailable | 15:29:07 [facility] | | | | + + + +-------+ + + + + | Result panel 2 | + + + + + +--------+ + + | | 2023-05-10 | [facility] | 59.5 | (missing) | (missing) | | (unavailable | 15:29:07 [facility] | | | | + + + +--------+ + + + + | Result panel 3 | + + + + + +--------+ + + | | 2023-05-10 | [facility] | 24.5 | (missing) | (missing) | | (unavailable | 15:29:07 [facility] | | | | + + + +--------+ + + + + | Result panel 4 | + + + + + +-------+ + + | | 2023-05-10 | [facility] | 9.6 | (missing) | (missing) | | (unavailable | 15:29:07 [facility] | | | | + + + +-------+ + + + + | Result panel 5 | + + + + + +-------+ + + | | 2023-05-10 | [facility] | 5.7 | (missing) | (missing) | | (unavailable | 15:29:07 [facility] | | | | + + + +-------+ + + + + | Result panel 6 | + + + + + +-------+ + + | | 2023-05-10 | [facility] | 0.7 | (missing) | (missing) | | (unavailable | 15:: | [facility] | | | | + + + +-------+ + + + + | Result panel 7 | + + + + + +-------+---------+ + | | 2023-05-10 | [facility] | 144 | mg/dL | (missing) | | (unavailable | 15:29:07 [facility] | | | | + + + +-------+---------+ + + + | Result panel 8 | + + + + + +------+---------+ + | | 2023-05-10 | [facility] | 30 | mg/dL | (missing) | | (unavailable | 15:29:07 [facility] | | | | + + + +------+---------+ + + + | Result panel 9 | + + + + + +--------+---------+ + | | 2023-05-10 | [facility] | 1.79 | mg/dL | (missing) | | (unavailable | 15:: [facility] | | | | + + + +--------+---------+ + + + | Result panel 10 | + + + + + +------+ + + | | 2023-05-10 | [facility] | 40 | (missing) | (missing) | | (unavailable | 15:29:07 [facility] | | | | + + + +------+ + + + + | Result panel 11 | + + + + + +-------+ + + | | 2023-05-10 | [facility] | 8.8 | (missing) | (missing) | | (unavailable | 15:29:07 [facility] | | | | + + + +-------+ + + + + | Result panel 12 | + + + + + +---------+ + + | | 2023-05-10 | [facility] | 16.75 | (missing) | (missing) | | (unavailable | 15:29:07 [facility] | | | | + + + +---------+ + + + + | Result panel 13 | + + + + + +-------+ + + | | 2023-05-10 | [facility] | 141 | (missing) | (missing) | | (unavailable | 15:29:07 [facility] | | | | + + + +-------+ + + + + | Result panel 14 | + + + + + +-------+ + + | | 2023-05-10 | [facility] | 4.0 | (missing) | (missing) | | (unavailable | 15:: [facility] | | | | + + + +-------+ + + + + | Result panel 15 | + + + + + +-------+ + + | | 2023-05-10 | [facility] | 103 | (missing) | (missing) | | (unavailable | 15:29:07 [facility] | | | | + + + +-------+ + + + + | Result panel 16 | + + + + + +------+ + + | | 2023-05-10 | [facility] | 26 | (missing) | (missing) | | (unavailable | 15:29:07 [facility] | | | | + + + +------+ + + + + | Result panel 17 | + + + + + +--------+ + + | | 2023-05-10 | [facility] | 16.0 | (missing) | (missing) | | (unavailable | 15:29:07 [facility] | | | | + + + +--------+ + + + + | Result panel 18 | + + + + + +-------+---------+ + | | 2023-05-10 | [facility] | 9.0 | mg/dL | (missing) | | (unavailable | 15:29:07 [facility] | | | | + + + +-------+---------+ + + + | Result panel 19 | + + + + + +--------+ + + | | 2023-05-10 | [facility] | 4.34 | (missing) | (missing) | | (unavailable | 15:29:07 [facility] | | | | + + + +--------+ + + + + | Result panel 20 | + + + + + +--------+ + + | | 2023-05-10 | [facility] | 12.4 | (missing) | (missing) | | (unavailable | [facility]:29:07 [facility] | | | | + + + +--------+ + + + + | Result panel 21 | + + + + + +--------+ + + | | 2023-05-10 | [facility] | 37.9 | (missing) | (missing) | | (unavailable | [facility]:29:07 [facility] | | | | + + + +--------+ + + + + | Result panel 22 | + + + + + +--------+ + + | | 2023-05-10 | [facility] | 87.4 | (missing) | (missing) | | (unavailable | 15:29:07 [facility] | | | | + + + +--------+ + + + + | Result panel 23 | + + + + + +--------+ + + | | 2023-05-10 | [facility] | 28.7 | (missing) | (missing) | | (unavailable | 15:29:07 [facility] | | | | + + + +--------+ + + + + | Result panel 24 | + + + + + +--------+ + + | | 2023-05-10 | [facility] | 32.8 | (missing) | (missing) | | (unavailable | 15:29:07 [facility] | | | | + + + +--------+ + + + + | Result panel 25 | + + + + + +--------+ + + | | 2023-05-10 | [facility] | 13.3 | (missing) | (missing) | | (unavailable | 15:29:07 [facility] | | | | + + + +--------+ + + + + | Result panel 26 | + + + + + +-------+ + + | | 2023-05-12 | [facility] | 124 | (missing) | (missing) | | (unavailable | 12:00:07 [facility] | | | | + + + +-------+ + + Social History No information. Vital Signs + + +---------+---------+ | date | measurement | value | units | + + +---------+---------+ | 2023-05-12 00:00 | BMI | 28.8 | kg/m2 | + + +---------+---------+ | 2023-05-12 00:00 | BP_diastolic | 68 | mmHg | + + +---------+---------+ | 2023-05-12 00:00 | BP_systolic | 154 | mmHg | + + +---------+---------+ | 2023-05-12 00:00 | heart_rate | 60 | /min | + + +---------+---------+ | 2023-05-12 00:00 | height_metric | 177.8 | cm | + + +---------+---------+ | 2023-05-12 00:00 | height_standard | 70 | in | + + +---------+---------+ | 2023-05-12 00:00 | o2_saturation | 98 | % | + + +---------+---------+ | 2023-05-12 00:00 | respiration_rate | 18 | /min | + + +---------+---------+ | 2023-05-12 00:00 | temperature_metric | 36.11 | C | | | | | | + + +---------+---------+ | 2023-05-12 00:00 | | 97 | F | | | temperature_standar | | | | | d | | | + + +---------+---------+ | 2023-05-12 00:00 | weight_metric | 90.9 | kg | + + +---------+---------+ | 2023-05-12 00:00 | weight_standard | 200.4 | lb | + + +---------+---------+"
--- OUTSIDE RECORDS SUMMARY | ~2023-05-17 | XMS | Continuity of Care Document ---
Demographics + + + | Address | [facility] [address] | | | [place] [address] | + + + | Preferred Language | Unknown | + + + | Marital Status | | + + + | Presybeterian Affiliation | Unknown | + + + | Race | White | + + + | Ethnic Group | Not or | + + + Author + + + | Author | [facility] | + + + | Organization | [facility] | + + + | Address | [address] [facility] | | | [place] [address] | + + + | Phone | | + + + Care Team Providers + + + + | Care Flare Stitcher Name | Role | Phone | + [...] | 2022-04-03 00:00 | CETIRIZINE HCL | [facility] | + + + + | 2022-11-02 00:00 | CETIRIZINE HCL | [facility] | + + + + | 2023-05-12 00:00 | CETIRIZINE HCL | [facility] | + + + + | 2019-12-26 00:00 | APIXABAN | [facility] | + + + + | 2023-05-12 00:00 | APIXABAN | [facility] | + + + + | 2022-04-03 00:00 | MELOXICAM | [facility] | + + + + | 2022-11-02 00:00 | MELOXICAM | [facility] | + + + + | 2023-05-12 00:00 | MELOXICAM | [facility] | + + + + | 2022-04-03 00:00 | FLUTICASONE PROPIONATE | [facility] | + + + + | 2022-11-02 00:00 | FLUTICASONE PROPIONATE | [facility] | + + + + | 2022-04-03 00:00 | CHLORTHALIDONE | [facility] | + + + + | 2022-11-02 00:00 | CHLORTHALIDONE | [facility] | + + + + | 2022-04-03 00:00 | CHLORTHALIDONE | [facility] | + + + + | 2022-11-02 00:00 | CHLORTHALIDONE | [facility] | + + + + | 2023-05-12 00:00 | CHLORTHALIDONE | [facility] | + + + + | 2022-04-03 00:00 | LISINOPRIL | [facility] | + + + + | 2022-11-02 00:00 | LISINOPRIL | [facility] | + + + + | 2022-04-03 00:00 | NIFEDIPINE | [facility] | + + + + | 2022-11-02 00:00 | NIFEDIPINE | [facility] | + + + + | 2023-05-12 00:00 | NIFEDIPINE | [facility] | + + + + | 2022-04-03 00:00 | ASCORBIC ACID | [facility] | + + + + | 2022-11-02 00:00 | ASCORBIC ACID | [facility] | + + + + | 2023-05-12 00:00 | ASCORBIC ACID | [facility] | + + + + | 2022-04-03 00:00 | Cholecalciferol (Vitamin | [facility] | | | D3) | | + + + + | 2022-11-02 00:00 | Cholecalciferol (Vitamin | [facility] | | | D3) | | + + + + | 2023-05-12 00:00 | Cholecalciferol (Vitamin | [facility] | | | D3) | | + + + + | 2023-05-12 00:00 | HYDROCHLOROTHIAZIDE | [facility] | + + + + | 2023-05-12 00:00 | FINASTERIDE | [facility] | + + + + | 2023-05-12 00:00 | CARVEDILOL | [facility] | + + + + | 2023-05-12 00:00 | AMLODIPINE BESYLATE | [facility] | + + + + | 2023-05-12 00:00 | Semaglutide | [facility] | + + + + | 2023-05-12 00:00 | UBIDECARENONE | [facility] | + + + + | 2022-04-03 00:00 | ATORVASTATIN CALCIUM | [facility] | + + + + | 2022-11-02 00:00 | ATORVASTATIN CALCIUM | [facility] | + + + + | 2022-04-03 00:00 | ASPIRIN | [facility] | + + + + | 2022-11-02 00:00 | ASPIRIN | [facility] | + + + + | 2023-05-12 00:00 | ASPIRIN | [facility] | + + + + | 2022-04-03 00:00 | glyBURIDE | [facility] | + + + + | 2022-11-02 00:00 | glyBURIDE | [facility] | + + + + | 2019-12-26 00:00 | PANTOPRAZOLE SODIUM | [facility] | + + + + | 2023-05-12 00:00 | EPLERENONE | [facility] | + + + + | 2023-05-12 00:00 | INSULIN DETEMIR | [facility] | + + + + | 2019-12-26 00:00 | DILTIAZEM HCL | [facility] | + + + + | 2020-01-01 00:00 | DILTIAZEM HCL | [facility] | + + + + | 2022-04-03 00:00 | INSULIN DETEMIR | [facility] | + + + + | 2022-11-02 00:00 | INSULIN DETEMIR | [facility] | + + + + | 2022-04-03 00:00 | WARFARIN SODIUM | [facility] | + + + + | 2022-11-02 00:00 | WARFARIN SODIUM | [facility] | + + + + | 2023-05-12 00:00 | WARFARIN SODIUM | [facility] | + + + + | 2023-05-12 00:00 | ROSUVASTATIN CALCIUM | [facility] | + + + + | 2022-04-03 00:00 | METFORMIN HCL | [facility] | + + + + | 2022-11-02 00:00 | METFORMIN HCL | [facility] | + + + + | 2023-05-12 00:00 | METFORMIN HCL | [facility] | + + + + | 2023-05-12 00:00 | OXYBUTYNIN CHLORIDE | [facility] | + + + + | 2023-05-12 00:00 | TAMSULOSIN HCL | [facility] | + + + + | 2022-04-03 00:00 | METOPROLOL SUCCINATE | [facility] | + + + + | 2022-11-02 00:00 | METOPROLOL SUCCINATE | [facility] | + + + + | 2023-05-12 00:00 | METOPROLOL SUCCINATE | [facility] | + + + + | 2019-12-26 00:00 | METOPROLOL TARTRATE | [facility] | + + + + | 2023-05-12 00:00 | LOSARTAN POTASSIUM | [facility] | + + + + Problems + + + + | date | description | facility | + + + + | 2015-03-30 00:00 | Contusion of finger of | [facility] | | | left hand | | + + + + | 2019-10-18 00:00 | ST elevation myocardial | [facility] | | | infarction (STEMI) | | + + + + | 2019-10-27 00:00 | Atrial fibrillation | [facility] | + + + + | 2019-10-31 00:00 | Bursitis of left hip | [facility] | + + + + | 2019-12-24 00:00 | Gastrointestinal | [facility] | | | hemorrhage | | + + + + | 2019-12-31 00:00 | Severe anemia | [facility] | + + + + | 2020-01-29 00:00 | Patient left without being | [facility] | | | seen | | + [...] DISEASE OF | [facility] | | | [place] 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
[2023-05-17 15:20] VITALS: BP 158/75
== END 2023-05-17 15:21 | disposition home or self-care (01) ==
LOC: ED 12:56
DX: J95.830 Postprocedural hemorrhage of a respiratory system organ or structure following a respiratory system procedure (principal); E11.9 Type 2 diabetes mellitus without complications; Z95.1 Presence of aortocoronary bypass graft; G47.30 Sleep apnea, unspecified; I25.2 Old myocardial infarction; Z87.891 Personal history of nicotine dependence; Z91.09 Other allergy status, other than to drugs and biological substances; Z79.01 Long term (current) use of anticoagulants; Z79.4 Long term (current) use of insulin; Z79.899 Other long term (current) drug therapy
CPT/HCPCS: 99283

== ENCOUNTER 2024-11-09 16:11 | Emergency (ER) | payer MEDICARE ==
[~2024-11-09] VITALS: Ht 177.8 cm; Wt 91.6 kg
[2024-11-09 16:29] LABS: BASOPHILS 0.4 % (0-2); EOSINOPHILS 0.4 % (0-6); HEMOGLOBIN 13.4 g/dL (12.0-18.0); LYMPHOCYTES 13.7 % (24-44); MCH 29.7 (27-36); MCHC 33.4 g/dl (30-36); MCV 88.9 fl (81-99); MONOCYTES 3.7 % (0-12); NEUTROPHILS 81.8 % (39-80); PLATELET COUNT 181 K/uL (140-440); RDW 13.5 (10.5-15.0)
[2024-11-09] MEDS ORDERED: SODIUM CHLORIDE 0.9% 1,000 ML IV PRN (16:30)
[2024-11-09] MEDS ORDERED: ondansetron HCL 4 MG/2 ML VIAL IV ONE (16:30)
[2024-11-09 16:41] LABS: ALBUMIN 4.3 g/dL (3.4-5.0); ALBUMIN/GLOBULIN RATIO 1.13 (1.1-2.4); ANION GAP 13.8 (7-21); BILIRUBIN, TOTAL 0.7 mg/dL (0.2-1.0); BUN/CREATININE RATIO 15.11 (6.0-28.6); CALCIUM 9.9 mg/dL (8.5-10.1); CREATININE, SERUM 1.72 mg/dL (0.70-1.30); POTASSIUM 3.8 mmol/L (3.5-5.1); PROTEIN, TOTAL 8.1 g/dL (6.4-8.2)
[2024-11-09 16:52] LABS: BILIRUBIN, URINE NEGATIVE (negative); BLOOD/HGB, URINE TRACE-L (Negative); KETONE, URINE NEGATIVE (Negative); LEUK ESTERASE, URINE NEGATIVE (negative); NITRITE, URINE NEGATIVE (negative)
[2024-11-09 16:58] LABS: BACTERIA, URINE NONE SEEN /hpf (negative); CASTS, URINE NONE SEEN \\lpf; COLLECTION TYPE, URINE CLEAN CATCH; CRYSTALS, URINE AMORPHOUS PHOSPH 3+ (0-1+); EPITHELIAL CELLS, URINE SQUAMOUS 1+ /lpf (0-1+); REFLEX CULTURE, URINE No (No)
[2024-11-09 17:28] LABS: CORONAVIRUS COVID-19 AG NEGATIVE (NEGATIVE); INFLUENZA A AG NEGATIVE (NEGATIVE); INFLUENZA B AG NEGATIVE (NEGATIVE)
[2024-11-09] MEDS ORDERED: METOCLOPRAMIDE HCL 10 MG/2 ML SDV IV ONE (17:45)
[2024-11-09 17:49] VITALS: BP 193/87
== END 2024-11-09 17:50 | disposition home or self-care (01) ==
LOC: ED 16:11
PROVIDERS: Emergency Medicine
DX: R11.10 Vomiting, unspecified (principal); I10 Essential (primary) hypertension; E11.9 Type 2 diabetes mellitus without complications; I25.2 Old myocardial infarction; G47.30 Sleep apnea, unspecified; Z95.1 Presence of aortocoronary bypass graft; Z87.891 Personal history of nicotine dependence; Z91.048 Other nonmedicinal substance allergy status; Z79.899 Other long term (current) drug therapy; Z79.01 Long term (current) use of anticoagulants; Z79.4 Long term (current) use of insulin; Z79.84 Long term (current) use of oral hypoglycemic drugs
CPT/HCPCS: 36415; 80053; 81001; 83690; 84484; 85025; 93005; 93010; 96361; 96374; 99284-25; J2405; J7030

== ENCOUNTER 2025-03-07 10:14 | Emergency (ER) | payer MEDICARE ==
[~2025-03-07] VITALS: Ht 177.8 cm; Wt 96.6 kg
[~2025-03-07 10:14] MED LIST changes: +ONDANSETRON ODT4 MG PO
[2025-03-07 10:41] LABS: BILIRUBIN, URINE NEGATIVE (negative); BLOOD/HGB, URINE SMALL (Negative); KETONE, URINE NEGATIVE (Negative); LEUK ESTERASE, URINE NEGATIVE (negative); NITRITE, URINE NEGATIVE (negative)
[2025-03-07] MEDS ORDERED: ondansetron HCL 4 MG/2 ML VIAL IV PRN (10:45)
[2025-03-07] MEDS ORDERED: KETOROLAC TROMETHAMINE 15 MG/ML VIAL IV ONE (10:45)
[2025-03-07 10:51] LABS: BASOPHILS 0.5 % (0.2-1.2); EOSINOPHILS 4.8 % (0.8-7.0); HEMATOCRIT 37.6 % (40.1-51.0); HEMOGLOBIN 12.5 g/dL (13.7-17.5); LYMPHOCYTES 18.1 % (21.8-53.1); MCHC 33.2 g/dL (32.3-36.5); MCV 90.2 fL (79.0-92.2); NEUTROPHILS 66.6 % (34.0-67.9); PLATELET COUNT 137 K/uL (163-337); RBC 4.17 M/uL (4.63-6.08)
[2025-03-07 10:52] LABS: BACTERIA, URINE NONE SEEN /hpf (negative); CASTS, URINE NONE SEEN \\lpf; CRYSTALS, URINE NONE SEEN (0-1+); EPITHELIAL CELLS, URINE SQUAMOUS 1+ /lpf (0-1+)
[2025-03-07 10:53] LABS: COLLECTION TYPE, URINE CLEAN CATCH; REFLEX CULTURE, URINE No (No)
[2025-03-07 11:05] LABS: ALBUMIN 4.1 g/dL (3.4-5.0); ALBUMIN/GLOBULIN RATIO 1.28 (1.1-2.4); BILIRUBIN, TOTAL 0.5 mg/dL (0.2-1.0); BUN/CREATININE RATIO 16.75 (6.0-28.6); CREATININE, SERUM 1.79 mg/dL (0.70-1.30); PROTEIN, TOTAL 7.3 g/dL (6.4-8.2)
[2025-03-07 12:19] VITALS: BP 199/95
[2025-03-08] MEDS ORDERED: CEPHALEXIN500 M1 PO (12:30)
[2025-03-08] MEDS ORDERED: ONDANSETRON ODT4 MG PO (12:30)
== END 2025-03-07 12:21 | disposition home or self-care (01) ==
LOC: ED 10:14
PROVIDERS: Emergency Medicine
DX: R10.9 Unspecified abdominal pain (principal); I10 Essential (primary) hypertension; E11.9 Type 2 diabetes mellitus without complications; I48.91 Unspecified atrial fibrillation; G47.33 Obstructive sleep apnea (adult) (pediatric); Z79.01 Long term (current) use of anticoagulants; Z79.899 Other long term (current) drug therapy
CPT/HCPCS: 36415; 74176; 80053; 81001; 85025; 99284-25

== ENCOUNTER 2025-03-08 07:55 | Emergency (ER) | payer MEDICARE ==
[~2025-03-08] VITALS: Ht 177.8 cm; Wt 96.6 kg
[2025-03-08] MEDS ORDERED: SODIUM CHLORIDE 0.9% 1,000 ML IV ONE (08:30)
[2025-03-08] MEDS ORDERED: ondansetron HCL 4 MG/2 ML VIAL IV ONE ×2 (08:30→10:00)
[2025-03-08] MEDS ORDERED: CYCLOBENZAPRINE HCL 10 MG TAB PO ONE (08:30)
[2025-03-08] MEDS ORDERED: KETOROLAC TROMETHAMINE 15 MG/ML VIAL IV ONE (08:30)
[2025-03-08] MEDS ORDERED: LIDOCAINE HCL 4% 1 EACH PATCH TD ONE (08:30)
[2025-03-08 08:43] LABS: BASOPHILS 0.1 % (0.2-1.2); EOSINOPHILS 0 % (0.8-7.0); HEMATOCRIT 40.4 % (40.1-51.0); HEMOGLOBIN 13.9 g/dL (13.7-17.5); LYMPHOCYTES 11.2 % (21.8-53.1); MCHC 34.4 g/dL (32.3-36.5); MCV 87.3 fL (79.0-92.2); MONOCYTES 6.4 % (5.3-12.2); NEUTROPHILS 81.7 % (34.0-67.9); PLATELET COUNT 168 K/uL (163-337); RBC 4.63 M/uL (4.63-6.08)
[2025-03-08] MEDS ORDERED: HYDROmorphone HCL 1 MG/ML SYR IV ONE (08:45)
[2025-03-08 08:59] LABS: ALBUMIN 3.9 g/dL (3.4-5.0); ALBUMIN/GLOBULIN RATIO 1.15 (1.1-2.4); ANION GAP 12.5 (7-21); BILIRUBIN, TOTAL 0.5 mg/dL (0.2-1.0); BUN/CREATININE RATIO 17.31 (6.0-28.6); CALCIUM 8.9 mg/dL (8.5-10.1); CREATININE, SERUM 1.79 mg/dL (0.70-1.30); POTASSIUM 3.5 mmol/L (3.5-5.1); PROTEIN, TOTAL 7.3 g/dL (6.4-8.2)
[2025-03-08] MEDS ORDERED: SODIUM CHLORIDE 0.9% 1,000 ML IV PRN (11:00)
[2025-03-08 12:06] LABS: BILIRUBIN, URINE NEGATIVE (negative); BLOOD/HGB, URINE MODERATE (Negative); KETONE, URINE NEGATIVE (Negative); LEUK ESTERASE, URINE NEGATIVE (negative); NITRITE, URINE NEGATIVE (negative)
[2025-03-08 12:11] LABS: EPITHELIAL CELLS, URINE SQUAMOUS 1+ /lpf (0-1+)
[2025-03-08 12:12] LABS: BACTERIA, URINE 1+ /hpf (negative); CASTS, URINE NONE SEEN \\lpf; COLLECTION TYPE, URINE CLEAN CATCH; CRYSTALS, URINE NONE SEEN (0-1+); REFLEX CULTURE, URINE No (No)
[2025-03-08] MEDS ORDERED: CEPHALEXIN500 M1 PO (12:30)
[2025-03-08] MEDS ORDERED: ONDANSETRON ODT4 MG PO (12:30)
[2025-03-08 12:50] VITALS: BP 175/90
[2025-03-08] MEDS ORDERED: LIDOCAINE PATCH REMOVAL 1 EA TD SCH (21:00)
== END 2025-03-08 12:50 | disposition home or self-care (01) ==
LOC: ED 07:55
PROVIDERS: Emergency Medicine
DX: N39.0 Urinary tract infection, site not specified (principal); I10 Essential (primary) hypertension; E11.9 Type 2 diabetes mellitus without complications; I25.2 Old myocardial infarction; I48.91 Unspecified atrial fibrillation; G47.33 Obstructive sleep apnea (adult) (pediatric); Z87.891 Personal history of nicotine dependence
CPT/HCPCS: 36415; 80053; 81001; 83690; 85025; 96361; 96374; 96375; 96376; 99284-25; A9270; J1171; J2405; J7030